=== PATIENT | female | born 1995 | race Caucasian/White ===

== ENCOUNTER 2022-10-06 18:00 | Inpatient (IN) | payer BC ==
[~2022-10-06 18:00] MED LIST: Bupivacaine 0.25% HCL 30 ML VIAL ONE; Bupivacaine HCl 0.5%/Epinephrine 1:200,000/PF 30 ml Vial ONE; ePHEDrine Sulfate 50 MG/10 ML VIAL ONE
[2022-10-06 19:29] VITALS: BMI 45.7
[2022-10-06] MEDS ORDERED: Methylergonovine 0.2 MG/ML VIAL IM PRN (20:00)
[2022-10-06] MEDS ORDERED: Penicillin G Potassium 5 MILL.UNITS in Sodium Chloride 0.9% 100 ML IVPB SCH (20:00)
[2022-10-06] MEDS ORDERED: Promethazine HCl 25 MG/ML VIAL IM PRN (20:00)
[2022-10-06] MEDS ORDERED: Lidocaine 1% (PF) 30 ML VIAL SC PRN (20:00)
[2022-10-06] MEDS ORDERED: Acetaminophen 500 MG TAB PO PRN (20:00)
[2022-10-06] MEDS ORDERED: Butorphanol Tartrate 1 MG/ML VIAL SLOW IVP PRN (20:00)
[2022-10-06] MEDS ORDERED: HYDROcodone/Acetaminophen 5/325 mg Tablet PO PRN (20:00)
[2022-10-06] MEDS ORDERED: Ibuprofen 800 MG TAB PO PRN (20:00)
[2022-10-06] MEDS ORDERED: Ondansetron PF 4 MG/2 ML Vial IVP PRN (20:00)
[2022-10-06] MEDS ORDERED: Carboprost 250 MCG/ML AMP IM PRN (20:00)
[2022-10-06] MEDS ORDERED: Diphenoxylate HCl/Atropine Tablet PO PRN ×2 (20:00)
[2022-10-06] MEDS ORDERED: hydrALAZINE 20 MG/ML VIAL SLOW IVP PRN (20:00)
[2022-10-06] MEDS ORDERED: NS w/ Oxytocin 30 units 500 ML IV SCH ×2 (20:00)
[2022-10-06 20:24] LABS: Hemoglobin 12.6 g/dL (12.0-15.5); Mean Corpuscular HGB CONC 34.9 g/dL (32.0-36.0); Mean Corpuscular Hemoglobin 29.5 pg (27.0-33.0); Mean Corpuscular Volume 84.5 fl (81.6-98.3); Mean Platelet Volume 10.4 fl (7.4-10.4); Platelet Count 266 10x3/uL (150-450); RBC Distribution Width 12.6 % (11.5-14.5); Red Blood Cell (RBC) Count 4.27 10x6/uL (3.90-5.03); White Blood Cell (WBC) Count 12.6 10x3/uL (3.5-10.5)
[2022-10-06 20:56] LABS: HBSAg Index 0.19 S/CO (0-0.99); Hep B Surf Ag Non-Reactive S/CO (NonReactive); Syphilis Antibody Nonreactive (Nonreactive); Syphilis Antibody Index 0.03 S/CO (<1.00 Non-Reactive)
[2022-10-06] MEDS: Misoprostol 100 MCG TAB VAG SCH (22:31)
[2022-10-07] MEDS: Misoprostol 100 MCG TAB VAG SCH ×4 (02:25→23:45)
[2022-10-07] MEDS ORDERED: Fentanyl 2 mcg/Bup 0.1% Cadd 100 ML ONE (07:49)
[2022-10-07] MEDS ORDERED: Penicillin G Potassium 5 MILL.UNITS VIAL ONE (07:49)
[2022-10-07] MEDS ORDERED: Fentanyl 100 MCG/2 ML VIAL ONE (08:37)
[2022-10-07] MEDS ORDERED: Lactated Ringer's 500 ML IV PRN (09:12)
[2022-10-07] MEDS ORDERED: Ondansetron PF 4 MG/2 ML Vial IVP PRN (09:12)
[2022-10-07] MEDS ORDERED: Acetaminophen 325 MG TAB PO PRN (09:12)
[2022-10-07] MEDS ORDERED: diphenhydrAMINE 50 MG/ML VIAL IVP PRN (09:12)
[2022-10-07] MEDS ORDERED: Moisturizing Cream (Eucerin) 113 GM JAR TOP PRN (09:12)
[2022-10-07] MEDS ORDERED: Naloxone HCl 0.4 mg/ml Vial IVP PRN ×2 (09:12)
[2022-10-07] MEDS ORDERED: ePHEDrine Sulfate 50 MG/10 ML VIAL SLOW IVP PRN (09:12)
[2022-10-07] MEDS ORDERED: Promethazine HCl 25 MG/ML VIAL IM PRN (09:12)
[2022-10-07] MEDS ORDERED: Fentanyl 2 mcg/Bupivacaine 0.1% Cassette 100 ML EPIDURAL SCH (09:15)
[2022-10-07] MEDS ORDERED: Communication Order-Pharmacy FS SCH (09:15)
[2022-10-07] MEDS: Penicillin G 2.5 MILL.units 2.5 MILL.UNITS in Premix Bag 1 BAG IVPB SCH ×3 (12:17→23:46)
[2022-10-07] MEDS ORDERED: Misoprostol 200 MCG TAB ONE (20:01)
[2022-10-07] MEDS ORDERED: Carboprost 250 MCG/ML AMP ONE (20:04)
[2022-10-07] MEDS ORDERED: Lanolin Ointment 7 GM TUBE TOP PRN (20:31)
[2022-10-07] MEDS ORDERED: Boostrix 0.5 ML (Tdap) VIAL (>/=7 yrs of age) IM ONE (20:31)
[2022-10-07] MEDS ORDERED: Milk Of Magnesia 30 ML UDCUP PO PRN (20:31)
[2022-10-07] MEDS ORDERED: Bisacodyl 10 MG SUPP PR PRN (20:31)
[2022-10-07] MEDS ORDERED: hydrALAZINE 20 MG/ML VIAL SLOW IVP PRN (20:31)
[2022-10-07] MEDS ORDERED: diphenhydrAMINE 25 MG CAP PO PRN (20:31)
[2022-10-07] MEDS ORDERED: traMADol HCl 50 MG TAB PO PRN (20:31)
[2022-10-07] MEDS ORDERED: Diphenoxylate HCl/Atropine Tablet PO SCH (23:30)
[2022-10-07] MEDS: Docusate 100 MG CAP PO SCH (23:39)
[2022-10-07] MEDS: Ibuprofen 800 MG TAB PO SCH (23:40)
[2022-10-08 05:14] LABS: Mean Corpuscular HGB CONC 34.7 g/dL (32.0-36.0); Mean Corpuscular Hemoglobin 29.8 pg (27.0-33.0); Mean Corpuscular Volume 85.9 fl (81.6-98.3); Mean Platelet Volume 10.4 fl (7.4-10.4); Platelet Count 239 10x3/uL (150-450); RBC Distribution Width 12.7 % (11.5-14.5); Red Blood Cell (RBC) Count 3.69 10x6/uL (3.90-5.03); White Blood Cell (WBC) Count 23.8 10x3/uL (3.5-10.5)
[2022-10-08] MEDS: Ibuprofen 800 MG TAB PO SCH ×3 (05:58→21:31)
[2022-10-08] MEDS: Ferrous Sulfate 325 MG TAB PO SCH ×2 (07:32→17:25)
[2022-10-08] MEDS: Docusate 100 MG CAP PO SCH ×2 (08:50→21:31)
[2022-10-08] MEDS: Prenatal Vitamin 1 TAB PO SCH (08:50)
[2022-10-08] MEDS: Benzocaine-Menthol 82.5 ML CAN TOP PRN (08:53)
[2022-10-09 00:06] LABS: Hemoglobin 9.4 g/dL (12.0-15.5)
[2022-10-09] MEDS: Ibuprofen 800 MG TAB PO SCH ×2 (05:11→13:21)
[2022-10-09] MEDS: Docusate 100 MG CAP PO SCH (07:55)
[2022-10-09] MEDS: Ferrous Sulfate 325 MG TAB PO SCH (07:55)
[2022-10-09] MEDS: Prenatal Vitamin 1 TAB PO SCH (07:55)
[2022-10-09 08:00] VITALS: BP 125/71; TEMP 98.1
[2022-10-09] MEDS: Benzocaine-Menthol 82.5 ML CAN TOP PRN (13:25)
== END 2022-10-09 13:50 | disposition home or self-care (01) | DRG 806 ==
LOC: CSHLD 18:58 → CSHPP 10-07 22:20
PROVIDERS: ADMIT Obstetrics & Gynecology; ATTEND Obstetrics & Gynecology
PROC: 10E0XZZ Delivery of Products of Conception, External Approach (ICD-10-PCS; principal; 2022-10-07)
PROC: 0KQM0ZZ Repair Perineum Muscle, Open Approach (ICD-10-PCS; 2022-10-07)
DX: O70.1 Second degree perineal laceration during delivery (principal); O72.1 Other immediate postpartum hemorrhage; Z37.0 Single live birth; Z3A.40 40 weeks gestation of pregnancy
CPT/HCPCS: 36415; 51702; 85027; 86780; 86850; 86900; 86901; 87340; J2210; J2405; J2540; J2590; J3490; S0020